=== PATIENT | male | born 1970 | race Caucasian/White ===

== ENCOUNTER → 2016-06-25 | Outpatient (CLI) | payer BC | LOC: BMCIMAGING 15:26 | PROVIDERS: ATTEND Podiatrist Foot & Ankle Surgery | DX: M77.32 Calcaneal spur, left foot (principal) ==

== ENCOUNTER → 2017-04-11 | Outpatient (CLI) | payer BC | LOC: BMCIMAGING 15:48 | PROVIDERS: ATTEND Podiatrist Foot & Ankle Surgery | DX: M77.31 Calcaneal spur, right foot (principal) ==